=== PATIENT | female | born 1985 | race Caucasian/White ===

== ENCOUNTER 2018-03-23 10:06 | Emergency (ER) | payer MEDICAID, OTHER ==
[2018-03-23 10:06] VITALS: BMI 22.4
[2018-03-23 10:31] VITALS: BP 108/55; PULSE 98; RESP 18; TEMP 99.3; O2SAT 99
--- NOTE | 2018-03-23 10:49 | ED PDOC ---
Arrival/HPI - General Chief Complaint: Weakness/Neurological Deficit Time Seen by Provider: 03/23/18 10:29 Historian: Patient - History of Present Illness Narrative History of Present Illness (Text): 03/23/18 10:58 Ninfa Nguyen is a 32 year old female complaining of numbness to 4th and 5th fingers of right hand for the last three months. Patient states that she experiences numbness whenever the bends her elbow for a long time. 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 Patient denies any fevers, chills, chest pain , shortness of breath, abdominal pain, nausea, vomiting, diarrhea, back pain, neck pain, urinary symptoms, headache, dizziness, or any other complaint. Time/Duration: 4-6 hours Symptom Onset: Gradual Symptom Course: Unchanged Activities at Onset: Light Context: Home Past Medical History - Provider Review Nursing Documentation Reviewed: Yes - Infectious Disease Hx of Infectious Diseases: None - Tetanus Immunization Tetanus Immunization: Unknown - Reproductive Menopause: No - Past Medical History Past Medical History: No Previous - Psychiatric Hx Depression: No Hx Emotional Abuse: No Hx Physical Abuse: No Hx Substance Use: No - Past Surgical History Past Surgical History: No Previous - Anesthesia Hx Anesthesia: No - Suicidal Assessment Feels Threatened In Home Enviroment: No Family/Social History - Physician Review Nursing Documentation Reviewed: Yes Family/Social History: No Known Family HX Smoking Status: Unknown If Ever Smoked Hx Alcohol Use: No Hx Substance Use: No Hx Substance Use Treatment: No Allergies/Home Meds Allergies/Adverse Reactions: Allergies No Known Allergies Allergy (Verified 03/23/18 10:31) Home Medications: Home Meds Medication Instructions Recorded Confirmed No Known Home Med 03/19/13 03/19/13 Review of Systems - Physician Review All systems were reviewed & negative as marked: Yes - Review of Systems Constitutional: absent: Fevers, Night Sweats Eyes: absent: Vision Changes ENT: absent: Hearing Changes Respiratory: absent: SOB, Cough Cardiovascular: absent: Chest Pain Gastrointestinal: absent: Abdominal Pain Genitourinary Female: absent: Dysuria, Frequency Musculoskeletal: absent: Arthralgias, Back Pain Skin: absent: Rash, Pruritis Neurological: Other (Numbness). absent: Headache Endocrine: absent: Diaphoresis, Polyuria Hemo/Lymphatic: absent: Adenopathy Psychiatric: absent: Depression Physical Exam Vital Signs Reviewed: Yes Vital Signs Temp Pulse Resp BP Pulse Ox 03/23/18 10:27 99.3 F 98 H 18 108/55 L 99 Temperature: Afebrile Blood Pressure: Hypotensive Pulse: Tachycardic Respiratory Rate: Normal Appearance: Positive for: Well-Appearing, Non-Toxic, Comfortable Pain Distress: None Mental Status: Positive for: Alert and Oriented X 3 - Systems Exam Head: Present: Atraumatic, Normocephalic Pupils: Present: PERRL Extroacular Muscles: Present: EOMI Conjunctiva: Present: Normal Mouth: Present: Moist Mucous Membranes Neck: Present: Normal Range of Motion Respiratory/Chest: Present: Clear to Auscultation, Good Air Exchange. No: Respiratory Distress, Accessory Muscle Use Cardiovascular: Present: Regular Rate and Rhythm, Normal S1, S2. No: Murmurs Abdomen: No: Tenderness, Distention, Peritoneal Signs Back: Present: Normal Inspection Upper Extremity: Present: Normal Inspection. No: Cyanosis, Edema Lower Extremity: Present: Normal Inspection. No: Edema Neurological: Present: GCS=15, CN II-XII Intact, Speech Normal Skin: Present: Warm, Dry, Normal Color. No: Rashes Psychiatric: Present: Alert, Oriented x 3, Normal Insight, Normal Concentration Medical Decision Making ED Course and Treatment: 03/23/18 11:04 Impression: 32 year old female complaining of numbness to 4th and 5th fingers of the right hand for the past 3 months. Plan: -- Reassess and disposition Progress Notes: Disposition/Present on Arrival - Present on Arrival Any Indicators Present on Arrival: No History of DVT/PE: No History of Uncontrolled Diabetes: No Urinary Catheter: No History of Decub. Ulcer: No History Surgical Site Infection Following: None - Disposition Have Diagnosis and Disposition been Completed?: Yes Diagnosis: Ulnar nerve entrapment at elbow Disposition: HOME/ ROUTINE Disposition Time: 10:50 Patient Plan: Discharge Patient Problems: Current Active Problems Problem Status Onset Ulnar nerve entrapment at elbow Acute Condition: GOOD Additional Instructions: Gerson Malcolm this is happening to you. You are right this would be entrapment of the ulnar nerve. Dr. Garsia is the Neurosurgeon sld inclusion teacher. Please call his office today for the next available appointment. You will need nerve conduction studies as well. The treatment for this is most often surgery. Return to us if any problems. Best- Dr. Raz Wiseman Referrals: Prabhakar Garsia MD [Staff Provider] - Follow up with primary Forms: [employer] ([place]), WORK NOTE, SCHOOL NOTE
== END 2018-03-23 11:05 | disposition home or self-care (01) ==
LOC: ED 10:06
DX: G56.21 Lesion of ulnar nerve, right upper limb (principal)